=== PATIENT | female | born 1980 | race Caucasian/White ===

== ENCOUNTER 2017-09-08 07:56 | Observation (INO) | payer SELFPAY ==
[~2017-09-08] VITALS: Ht 160 cm; Wt 109.8 kg
[2017-09-08] MEDS ORDERED: ASPIRIN 325 MG TAB PO ONE (08:30)
--- NOTE | 2017-09-08 08:59 | Diagnostic Imaging Report ---
History: Left-sided weakness, numbness Comparison studies: None Technique: Axial images were obtained from the skull base to the vertex. Coronal and sagittal reconstructions obtained from the axial data. Findings: Scalp/skull: No abnormalities. No fractures, blastic or lytic lesions. Extra-axial spaces: No masses. No fluid collections. Brain sulci: Appropriate for age. Ventricles: Normal in size and configuration. No hydrocephalus. Parenchyma: No abnormal densities. No masses, hemorrhage, acute or chronic cortical vascular insults. Sellar/suprasellar region: No abnormalities Craniocervical junction: Patent foramen magnum. No Chiari one malformation. IMPRESSION: No abnormalities . Signed by: DR Hossein Birmingham M.D. on 09/08/2017 8:55 AM
[2017-09-08 09:17] LABS: BASOPHILS % 0.7 % (0.0-1.0); EOSINOPHILS # (AUTO) 0.1 (0.0-0.4); EOSINOPHILS % 2.2 % (0.0-6.0); HEMATOCRIT 41.2 % (34.2-44.1); HEMOGLOBIN 13.6 g/dL (12.0-16.0); LYMPHOCYTES # (AUTO) 0.8 (1.0-3.2); MEAN CORPUSCULAR HEMOGLOBIN 29.8 pg (28-32); MEAN CORPUSCULAR VOLUME 90.2 fL (81-99); MONOCYTES # (AUTO) 0.3 (0.2-0.8); MONOCYTES % 6.3 % (4.4-11.3); NEUTROPHILS # (AUTO) 3.3 (2.1-6.9); NEUTROPHILS % 72.6 % (38.7-80.0); PLATELET COUNT 220 x10e3/uL (140-360); RED BLOOD COUNT 4.57 x10e6/uL (3.6-5.1)
[2017-09-08 09:37] LABS: INR 0.96
[2017-09-08 09:38] LABS: ANION GAP 10.9 mmol/L (8-16); BLOOD UREA NITROGEN 9 mg/dL (7-26); CARBON DIOXIDE 27 mmol/L (22-29); CHLORIDE 101 mmol/L (98-107); CREATININE, SERUM 0.75 mg/dL (0.57-1.11); POTASSIUM 3.9 mmol/L (3.5-5.1); SODIUM 135 mmol/L (136-145)
[2017-09-08 09:39] LABS: ALANINE AMINOTRANSFERASE 20 IU/L (0-55); ALBUMIN 3.5 g/dL (3.5-5.0); ALBUMIN/GLOBULIN RATIO 0.9 (0.8-2.0); ALKALINE PHOSPHATASE 78 IU/L (40-150); BUN/CREATININE RATIO 12 (6-25); CALCIUM 9.3 mg/dL (8.4-10.2); EST GLOMERULAR FILTRATION RATE > 60 ML/MIN (60-); GLUCOSE 100 mg/dL (74-118)
[2017-09-08] MEDS ORDERED: ONDANSETRON HCL INJ 2 MG/ML VIAL IV PRN (11:15)
[2017-09-08] MEDS ORDERED: ASPIRIN 81 MG CHEW TAB PO ONE (11:15)
[2017-09-08] MEDS ORDERED: SODIUM CHLORIDE FLUSH 10 ML SYR INJ PRN (11:15)
[2017-09-08 11:22] LABS: CREATINE KINASE 75 IU/L (29-168)
[2017-09-08] MEDS ORDERED: KETOROLAC TROMETHAMINE 30 MG/ML VIAL IV STA (11:33)
--- OUTSIDE RECORDS SUMMARY | 2017-09-08 11:33 | XMS REPORT ---
Author Author [facility] Address Unknown Phone Unavailable Care Team Providers Care Termite Control Service Representative Name Role Phone SANDEEP AMOS Unavailable Unavailable Problems This patient has no known problems. Allergies, Adverse Reactions, Alerts This patient has no known allergies or adverse reactions. Medications This patient has no known medications. Results Test Description Test Time Test Comments Text Results Atomic Results Result Comments CT BRAIN WO [place] [address] Patient Name: RED VALLADARES MR #: [id number] : 1980 Age/Sex: 37/F Req #: [id number] Adm Physician: Ordered by: SANDEEP AMOS MD Report #: [id number] Location: ER Room/Bed: Procedure: [id number] CT/CT BRAIN WO Exam Date: 09/08/17 Exam Time: 0840 REPORT STATUS: Signed History: Left-sided weakness, numbness Comparison studies: None Technique: Axial images were obtained from the skull base to the vertex. Coronal and sagittal reconstructions obtained from the axial data. Findings: Scalp/skull: No abnormalities. No fractures, blastic or lytic lesions. Extra-axial spaces: No masses. No fluid collections. Brain sulci: Appropriate for age. Ventricles: Normal in size and configuration. No hydrocephalus. Parenchyma: No abnormal densities. No masses, hemorrhage, acute or chronic cortical vascular insults. Sellar/suprasellar region: No abnormalities Craniocervical junction: Patent foramen magnum. No Chiari one malformation. IMPRESSION: No abnormalities . Signed by: DR Hossein Birmingham M.D. on 2017 8:55 AM Dictated By: HOSSEIN GARCIA MD 4 Transcribed By: TAVIA on 09/08/17854 COPY TO: SANDEEP AMOS MD
[2017-09-08] MEDS ORDERED: KETOROLAC TROMETHAMINE 30 MG/ML VIAL ONE (11:41)
[2017-09-08 12:20] VITALS: BP 118/61
[2017-09-08 13:31] VITALS: BP 118/61
--- NOTE | 2017-09-08 14:26 | Diagnostic Imaging Report ---
History: Left side tingling Comparison studies: CT head 09/08/2017 Technique: Pre-contrast: Sagittal T2; axial T1-IR, MPGR, DWI, T2 FLAIR. Post-contrast: axial and coronal T1. 2-D cervical and 3-D intracranial fczp-ta-bgqngl MRA's . Intravenous contrast: None Findings: Brain: Scalp: No abnormal signal. No masses. Bone marrow: Normal in signal intensity. Brain sulci: Mildly prominent . Ventricles: Normal in size . No hydrocephalus. Parenchyma: No abnormal signal intensities. No masses, hemorrhage, acute or chronic vascular insults. Suprasellar region: No abnormalities. Partially filled CSF sella as a normal variant Craniocervical junction: No abnormalities. Patent foramen magnum. No Chiari one malformation. Vessels: Normal flow-voids in the arteries and sinuses. Cervical MRA: Carotid arteries: No flow abnormalities . Vertebral arteries: No flow abnormalities . Intracranial MRA: Internal carotid arteries: No flow abnormalities . Vertebrobasilar circulation: No flow abnormalities . Anatomical variants: Acom: Visualized. Pcoms: Visualized bilaterally. Vertebral arteries: Dominant. IMPRESSION: Brain: 1. No intracranial abnormality Cervical and intracranial MRAs: 1. Normal study Signed by: DR Hossein Birmingham M.D. on 09/08/2017 2:23 PM
[2017-09-08] MEDS ORDERED: CELECOXIB 200 MG CAP PO PRN (15:00)
[2017-09-08 17:01] VITALS: BP 132/65
[2017-09-08 17:19] LABS: CREATINE KINASE 72 IU/L (29-168)
--- NOTE | 2017-09-08 20:57 | Consultation ---
DATE OF CONSULTATION: September 08, 2017 NEUROLOGY CONSULTATION HISTORY OF PRESENT ILLNESS: Ms. Mai is a 37-year-old fhukb-gfwf-umhkzbig woman with past medical history significant for Qhsjq-Oryuaeghk-Ymlmw syndrome who presented to [facility] on September 08, 2017 with left hemibody numbness and tingling. On the evening of September 06, 2017, the patient was sitting in a chair when she experienced the abrupt onset of left hemibody numbness and tingling affecting the face, arm, and leg. Ms. Mai endorses pain over the anterior surface of the left arm and forearm, which she further describes as a pulling or stretching sensation. The patient does not report a visual field cut or other disturbance, dysarthria, aphasia, hemiparesis, impairment of gait or balance, dizziness or confusion associated with the above symptoms. The patient does report a possible left facial droop associated with the left hemibody numbness and tingling. For 2 days following the onset of symptoms, the patient tried to alleviate her symptoms with massage and wwsw-dfz-fgicjdl analgesic medications. Unfortunately, her symptoms persisted. The patient presented to the emergency center at [facility] on the morning of September 08, 2017 for further evaluation. The patient has not experienced similar symptoms previously. In the emergency center, the patient was examined by the emergency center physician. The findings of that examination are not available for review at this time. The patient underwent a CT of the brain without contrast which did not show recent large territorial ischemia, hemorrhage, mass or mass affect. The patient was admitted to [facility] under observation status for further evaluation and treatment. REVIEW OF SYSTEMS: Numbness and tingling over the left side of the face, left arm, and left leg. Pulling and stretching pain over the left arm and forearm, neck pain, daily headaches, burning pain over the right shoulder. Otherwise, a 12 point review of systems is negative. PAST MEDICAL HISTORY: Asthma in childhood, daily headaches, Gm- Parkinson-White syndrome, preeclampsia with her last three years ago, blood clots in the leg and ovary with her last three years ago. PAST SURGICAL HISTORY: Cardiac ablation for Zzxoc-Zbgwhofxa-Mzfqa x2. PAST HOSPITALIZATIONS: Childbirth x4. FAMILY HISTORY: The patient does not know her father or his side of the family and cannot provide any medical history for either her father or his relatives. The patient's maternal grandmother is from coronary artery disease. Maternal aunt has cancer. The patient's mother has diabetes mellitus, bone cancer, emphysema, and fibromyalgia. The patient has one sister who is healthy. Ms. Mai has 4 children who are healthy. SOCIAL HISTORY: The patient has a domestic partner. She attended some college. 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 She is a former smoker; she quit smoking cigarettes three years ago. The patient does not report alcohol or recreational drug use. HOME MEDICATIONS: None. ALLERGIES: PENICILLIN. PINE NUTS CAUSE ANAPHYLAXIS. NO KNOWN ALLERGY TO LATEX. THE PATIENT IS ALLERGIC TO IODINATED CONTRAST WHICH CAUSES HIVES AND ANAPHYLAXIS. PHYSICAL EXAMINATION: VITAL SIGNS: Height 63 inches. Weight 242 pounds. BMI 42.9 kilograms per meter squared. Blood pressure 132/65 mm Hg, pulse 80 beats per minute. Respiratory rate 18 breaths per minute. Oxygen saturation 100% on room air. GENERAL: Patient is awake and alert, does not appear distressed. Morbidly obese. HEENT: Normocephalic and atraumatic. Pupils are equal, round and reactive to light. Moist mucous membranes. NECK: Supple. No appreciable thyromegaly. No appreciable carotid bruits. CARDIOVASCULAR: S1 and S2. Regular rate and rhythm. No murmurs, rubs or gallops. RESPIRATORY: Clear to auscultation bilaterally. No wheezes, rhonchi or rales. EXTREMITIES: The skin is warm and dry. No clubbing, cyanosis or edema. The posterior tibial and dorsalis pedis pulses are 2+ and symmetric. SKIN: No rashes or lesions. NEUROLOGIC: Memory/attention: The patient is awake and alert. Oriented to person, place, time, and situation. CRANIAL NERVES: Cranial nerve I: Not tested. Cranial nerves II, III, IV, : Pupils are equal and round, react briskly to light (from 4 mm to 2 mm). Extraocular movements intact. No nystagmus. Cranial nerve V: Sensation to light touch is diminished in the left V2 and V3 distributions. Sensation to pinprick is intact in the bilateral V1 through V3 distributions. Strength of the temporalis and masseter muscles is within normal limits. Cranial nerve VII: The face is symmetric, as are all facial movements. Strength is within normal limits. Cranial nerve VIII: Hearing is intact to finger rub bilaterally. Cranial nerve IX and X: The soft palate elevates equally and symmetrically. Cranial nerve XI: Normal strength of the bilateral sternocleidomastoid and trapezius muscles. Cranial nerve XII: The tongue protrudes midline and moves symmetrically from side to side. STRENGTH: Bulk is normal, and strength is 5/5 in the bilateral deltoids, biceps, triceps, wrist flexors and extensors, finger flexors and extensors, intrinsic hand muscles, hip flexors, knee flexors and extensors, ankle dorsiflexion and plantar flexion, and intrinsic foot muscles. Tone is normal. DTRs: Deep tendon reflexes are 1+ and symmetric at the triceps, biceps, brachioradialis, patellas, and Achilles. Plantar responses are flexor bilaterally. Absent clonus. SENSATION: Intact to light touch and pinprick in both arms and both legs except as follows: Decreased sensation to light touch over the left arm and hand. CEREBELLAR: Hekyto-gkca-tfaubs and heel-almanzar movements are intact without dysmetria or other impairment. Rapid alternating movements are intact. GAIT: Deferred. SPEECH: Spontaneous speech is normal without appreciable dysarthria or aphasia. Repetition is intact. INVOLUNTARY MOVEMENTS: None. PRONATOR DRIFT: None. LABORATORY DATA: Sodium 135. Potassium 3.9, chloride 101, carbon dioxide 27, anion gap 10.9, BUN 9, creatinine 0.75 with estimated GFR greater than 60. BUN to creatinine ratio is 12, glucose 100. Calcium 9.3. Total bilirubin 0.4. AST 23, ALT 20. Alkaline phosphatase 78. Total protein 7.2, albumin 3.5, globulin 3.7, and albumin to globulin ratio 0.9. Creatine kinase 75 72 and CK-MB 0.70, 0.60. Troponin I less than 0.001, less than 0.00I. The CBC with differential and platelets revealed a white blood cell count of 4.60 with a normal differential. The hemoglobin, hematocrit are 13.6 and 41.2, respectively. Platelet count is 220,000. PT 12.0, INR 0.96. PTT 25.0. DIAGNOSTIC STUDIES: CT of the brain without contrast on 09/08/2017: On my review, there is no evidence of recent or remote large territorial ischemia, hemorrhage, mass or mass affect. MRI of the brain without contrast on 09/08/2017. On my review, there is no evidence of recent or remote large territorial ischemia, hemorrhage, mass or mass affect. MRA of the head and neck without contrast on 09/08/2017: Normal MRA of the head and neck. Echocardiogram on 09/08/2017: Normal left ventricular systolic function with ejection fraction of 60% to 65%. All chambers are normal in size and function. No significant valvular abnormalities. ASSESSMENT AND PLAN: Ms. Mai is a 37-year-old mojlc-kbdo-selcmftw woman without vascular risk factors admitted to [facility] for a suspected transient ischemic attack. The patient's neurological examination is significant for diminished sensation to light touch over the left V2 and V3 distributions as well as the left arm and hand. The patient's laboratory data and diagnostic studies have been reviewed and are documented above. There is low suspicion for transient ischemic attack/stroke. The patient does not have high blood pressure, high cholesterol, diabetes mellitus, coronary artery disease, or obstructive sleep apnea. The patient does not take oral contraceptives. The patient does not smoke. In my opinion, it is far more likely the patient has left cervical and lumbosacral radiculopathies. Less likely, though possible, diagnoses include mononeuritis multiplex or peripheral neuropathy. The patient may be discharged to home. Ms. Mai was advised to follow up with myself or another neurologist as an outpatient for further evaluation (i.e. NCV/EMG) and treatment. Thank you for this consultation. TIME SPENT: 50 minutes. Job#: [id number]
[2017-09-09] MEDS ORDERED: ASPIRIN 81 MG ENTERIC COATED PO SCH (09:00)
== END 2017-09-08 17:52 | disposition home or self-care (01) ==
LOC: ER 07:59 → IMCU 11:30
PROVIDERS: ADMIT Internal Medicine; ATTEND Internal Medicine
DX: M54.12 Radiculopathy, cervical region (principal); M54.17 Radiculopathy, lumbosacral region; R29.810 Facial weakness; Z88.0 Allergy status to penicillin; Z91.041 Radiographic dye allergy status
CPT/HCPCS: 36415; 70450; 70544; 70547; 70551; 80053; 82550; 82553; 84484; 85025; 85610; 85730; 93005; 93306; 99284; G0378; J1885